=== PATIENT | female | born 1930 | race Caucasian/White ===

== ENCOUNTER → 2016-10-23 | Outpatient (CLI) | payer MEDICARE, OTHER | END | disposition home or self-care (01) | LOC: GMAB 10:39 | PROVIDERS: ATTEND Family Medicine | DX: I10 Essential (primary) hypertension (principal) ==

== ENCOUNTER → 2016-12-13 | Outpatient (CLI) | payer MEDICARE, OTHER | END | disposition home or self-care (01) | LOC: GMAB 14:06 | PROVIDERS: ATTEND Family Medicine | DX: R30.0 Dysuria (principal) ==

== ENCOUNTER → 2017-03-11 | Outpatient (CLI) | payer MEDICARE, OTHER | END | disposition home or self-care (01) | LOC: GMAB 11:13 | PROVIDERS: ATTEND Family Medicine | DX: N30.00 Acute cystitis without hematuria (principal) ==

== ENCOUNTER → 2017-03-14 | Outpatient (CLI) | payer MEDICARE, OTHER ==
--- NOTE | 2017-03-17 14:29 | MRI ---
MRI right shoulder without contrast INDICATION: Shoulder pain limited range of motion no recent trauma remote injury to the humerus and shoulder TECHNIQUE: Noncontrast MR imaging right shoulder standard protocol FINDINGS: There is a diffuse effectively full-thickness tear of the subscapularis with mild retraction. Ill-defined proximal long head bicep indicating high-grade partial to full-thickness tear. Severe AC joint arthrosis. Moderate glenohumeral osteoarthrosis with diffuse labral degeneration. Fluid/cystic change extends from the axillary recess medially inferiorly. Full-thickness retracted tears of the supraspinatus and infraspinatus with obliterated subacromial space. Grade 4 fatty atrophy and volume loss supraspinatus and infraspinatus with grade 3 subscapularis and teres minor. 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
== END ==
LOC: MRI 10:34
PROVIDERS: ATTEND Family Medicine
DX: M75.101 Unspecified rotator cuff tear or rupture of right shoulder, not specified as traumatic (principal); M19.011 Primary osteoarthritis, right shoulder; S46.111A Strain of muscle, fascia and tendon of long head of biceps, right arm, initial encounter

== ENCOUNTER → 2017-04-14 | Outpatient (CLI) | payer MEDICARE, OTHER | END | disposition home or self-care (01) | LOC: GMAB 15:01 | PROVIDERS: ATTEND Family Medicine | DX: D50.8 Other iron deficiency anemias (principal) ==

== ENCOUNTER → 2017-07-23 | Outpatient (CLI) | payer MEDICARE, OTHER ==
--- NOTE | 2017-07-23 16:37 | MRI ---
EXAM DESCRIPTION: Brain w/o Contrast: MRI. CLINICAL HISTORY: ATAXIC GAIT COMPARISON: None. TECHNIQUE: Multiplanar, high-field MRI unit, multiple diffusion sequences, multiple conventional sequences without contrast. FINDINGS: Multiple foci of bilateral hyperintense FLAIR and T2-weighted signal in the periventricular white matter and pineda-white matter junctions of the cerebral hemispheres. This is relatively symmetric in the bilateral frontoparietal and occipital lobes with relative sparing of the temporal lobes are not associated with mass effect hemorrhage or diffusion restriction . Normal signal in the bilateral basal ganglia. No hemorrhage, no cerebral edema, no mass-effect. Normal signal in the brainstem and cerebellar hemispheres. No hemorrhage, no cerebral edema, no mass-effect. Concordance of the diffusion and non-diffusion sequences with no diffusion restriction. Cortical sulci, ventricles, and other CSF spaces, and the subdural spaces are normally configured for patients age. No effacement or displacement. No midline shift. No extra-axial hemorrhage. Normal flow signal void in the major vessels of the little traverse Vaughn, and the venous sinuses. IACs are symmetric bilaterally. Normal signal in the bilateral mastoid air cells. No mass effect in the bilateral cerebellopontine angles. Pituitary gland occupies most of the sella. Base of the cerebellar tonsils is above the foramen magnum. Mucoperiosteal thickening in the bilateral paranasal sinuses. The bony calvarium is intact. IMPRESSION: 1. Bilateral hyperintensities in the cerebral hemispheres involving the periventricular white matter and subcortical white matter with relative sparing of the temporal lobes. This is most likely related to cerebral microvascular disease. Other etiologies less likely would include demyelinating process, migraine headaches, vasculitis, an inflammatory process is. These lesions are not associated with hemorrhage cerebral edema or diffusion restriction. No mass effect or midline shift. No significant lesions are seen in the brainstem or cerebellar hemispheres 2. Normal noncontrast MRI diffusion study with no evidence of acute or subacute infarction. Electronically signed by: David Macias MD 07/23/2017 4:36 PM CDT
== END ==
LOC: MRI 10:00
PROVIDERS: ATTEND Family Medicine
DX: R26.0 Ataxic gait (principal)

== ENCOUNTER → 2017-10-15 | Outpatient (CLI) | payer MEDICARE, OTHER | LOC: GMAE 15:29 | PROVIDERS: ATTEND Family Medicine | DX: R19.7 Diarrhea, unspecified (principal) ==

== ENCOUNTER → 2017-10-16 | Outpatient (CLI) | payer MEDICARE, OTHER | LOC: LAB.O 12:20 | PROVIDERS: ATTEND Family Medicine | DX: R19.7 Diarrhea, unspecified (principal) ==

== ENCOUNTER → 2017-10-20 | Outpatient (CLI) | payer MEDICARE, OTHER | LOC: GMAE 17:19 | PROVIDERS: ATTEND Family Medicine | DX: R41.82 Altered mental status, unspecified (principal); M89.9 Disorder of bone, unspecified ==

== ENCOUNTER → 2017-10-21 | Outpatient (CLI) | payer MEDICARE, OTHER ==
--- NOTE | 2017-10-21 09:55 | CT ---
EXAM DESCRIPTION: Head CLINICAL HISTORY: ALTERED MENTAL STATUS COMPARISON: Previous MRI of the head July 23, 2017 TECHNIQUE: Noncontrast head CT was performed with routine protocol. FINDINGS: Small frontal osteomas are noted unchanged. Normal pineda-white matter differentiation. Ventricles and sulci are prominent consistent with age-related cerebral volume loss. Low density in the periventricular white matter is consistent with chronic microvascular ischemic changes. Similar findings were seen on the previous MRI images. No high density hemorrhage, focal edema or shift of the midline. No sulcal effacement. Normal orbital contents. Basilar cisterns appear clear. Intact calvarium with no fracture or lytic lesion. Normal aeration of tympanic cavities and mastoid air cells. No fluid levels in the paranasal sinuses. Skull base appears intact. Symmetrical internal auditory canals. Coronal and sagittal reformatted images confirm the findings. IMPRESSION: No acute intracranial pathologic process. Senescent brain with chronic microvascular ischemic changes in the cerebral white matter. This exam was performed according to our departmental dose-optimization program, which includes automated exposure control, adjustment of the mA and/or kV according to patient size and/or use of iterative reconstruction technique. Total DLP equals 859.97 mGycm. Electronically signed by: Arnoldo Latif MD 10/21/2017 9:54 AM CDT
== END ==
LOC: CT 08:25
PROVIDERS: ATTEND Family Medicine
DX: R41.82 Altered mental status, unspecified (principal)

== ENCOUNTER → 2018-10-07 | Outpatient (CLI) | payer MEDICARE, OTHER | LOC: GMAE 16:57 | PROVIDERS: ATTEND Family Medicine | DX: I10 Essential (primary) hypertension (principal) ==

== ENCOUNTER → 2019-12-14 | Outpatient (CLI) | payer MEDICARE, OTHER | LOC: GMAE 16:57 | PROVIDERS: ATTEND Family Medicine | DX: R30.0 Dysuria (principal) ==